=== PATIENT | female | born 1955 | race African-American/Black ===

== ENCOUNTER 2021-02-12 14:12 | Emergency (ER) | payer MEDICARE, MEDICAID ==
[~2021-02-12] VITALS: Ht 167.6 cm; Wt 91.0 kg
[~2021-02-12 14:12] MED LIST: HIV MEDS
[2021-02-12] MEDS ORDERED: ONDANSETRON HCL 4MG/2ML INJ IV STA (16:22)
[2021-02-12] MEDS ORDERED: SODIUM CHLORIDE 0.9% 1,000 ML IV ONE (16:30)
[2021-02-12] MEDS ORDERED: HALOPERIDOL LACTATE 5MG/ML VIAL IM ONE ×2 (17:00)
[2021-02-12 17:06] LABS: BASOPHILS % 0.4 % (0.0-2.0); EOSINOPHILS % 0.1 % (0.0-5.0); HEMATOCRIT. 34.1 % (36.0-48.0); HEMOGLOBIN. 10.9 g/dL (12.0-16.0); MEAN CORPUSCULAR HEMOGLOBIN 24.3 pg (28.0-32.0); MEAN CORPUSCULAR VOLUME 76.2 fL (81.0-99.0); MEAN PLATELET VOLUME 8.9 fl (7.4-10.4); MONOCYTES % 2.7 % (2.0-8.0); NEUTROPHILS % 77.8 % (40.0-76.0); PLATELET 250 x1000/uL (130-400); RED BLOOD CELL COUNT 4.48 mill/uL (4.2-5.4); RED CELL DISTRIBUTION WIDTH 16.7 % (11.6-14.6)
[2021-02-12 17:13] LABS: PROTHROMBIN TIME 10.7 sec (9.6-11.0)
[2021-02-12 17:18] LABS: CHLORIDE 107 mEq/L (98-107)
[2021-02-12 17:30] LABS: CLARITY URINE CLEAR (CLEAR); COLOR URINE YELLOW (YELLOW); KETONES URINE 2+ (NEGATIVE); LEUKOCYTE ESTERASE URINE NEGATIVE (NEGATIVE); NITRITE URINE NEGATIVE (NEGATIVE); OCCULT BLOOD URINE NEGATIVE (NEGATIVE); PH URINE 6.5 (4.5-8.0); PROTEIN URINE TRACE (NEGATIVE); SPECIFIC GRAVITY URINE 1.027 (1.005-1.030); UROBILINOGEN URINE 0.2 E.U./dL (0.2-1.0)
[2021-02-12 17:40] LABS: *AMPHETAMINES SCREEN URINE NEGATIVE (NEGATIVE); *BARBITURATES SCREEN URINE NEGATIVE (NEGATIVE); *BENZODIAZEPINES SCREEN URINE NEGATIVE (NEGATIVE); *COCAINE SCREEN URINE NEGATIVE (NEGATIVE); CANNABINOID URINE SCREEN PRESUMTIVE POSITIVE (NEGATIVE); METHADONE URINE SCREEN NEGATIVE (NEGATIVE); OPIATES URINE SCREEN NEGATIVE (NEGATIVE); PHENCYCLIDINE URINE SCREEN NEGATIVE (NEGATIVE)
[2021-02-12] MEDS ORDERED: IOHEXOL-300 100 ML BOTTLE ONE (18:54)
[2021-02-12 19:38] VITALS: BP 139/47
[2021-02-12] MEDS ORDERED: ONDA4TAB5 MT (19:44)
== END 2021-02-12 20:32 | disposition home or self-care (01) ==
LOC: ER 14:12
DX: A08.4 Viral intestinal infection, unspecified (principal); F17.200 Nicotine dependence, unspecified, uncomplicated; I10 Essential (primary) hypertension; E11.9 Type 2 diabetes mellitus without complications
CPT/HCPCS: 36415; 71045; 74177; 80053; 80305; 81003; 83690; 84484; 85025; 85610; 93005; 96361; 96372; 96374; 99285; J1630; J2405; J7030; Q9967

== ENCOUNTER 2021-02-14 18:50 | Inpatient (IN) | payer MEDICARE, MEDICAID ==
[~2021-02-14] VITALS: Ht 172.7 cm; Wt 61.2 kg
[~2021-02-14 18:50] MED LIST changes: +ONDA4TAB5 MT
[2021-02-14] MEDS ORDERED: MAGNESIUM/ALUMINUM HYDROXIDE/SIMETHICONE 30ML UDC PO STA (21:02)
[2021-02-14] MEDS ORDERED: HYDROCODONE/ACETAMINOPHEN 5/325MG TABLET PO STA (21:02)
[2021-02-14] MEDS ORDERED: VISCOUS LIDOCAINE 2% 15 ML UDC PO STA (21:02)
[2021-02-14 22:46] LABS: BASOPHILS % 0.4 % (0.0-2.0); EOSINOPHILS % 0.2 % (0.0-5.0); HEMATOCRIT. 38.6 % (36.0-48.0); HEMOGLOBIN. 12.4 g/dL (12.0-16.0); LYMPHOCYTES % 31.2 % (20.0-50.0); MEAN CORPUSCULAR HEMOGLOBIN 24.8 pg (28.0-32.0); MEAN CORPUSCULAR VOLUME 77.6 fL (81.0-99.0); MEAN PLATELET VOLUME 8.8 fl (7.4-10.4); MONOCYTES % 5.7 % (2.0-8.0); NEUTROPHILS % 62.5 % (40.0-76.0); PLATELET 201 x1000/uL (130-400); RED BLOOD CELL COUNT 4.98 mill/uL (4.2-5.4); RED CELL DISTRIBUTION WIDTH 17.1 % (11.6-14.6)
[2021-02-14 22:51] LABS: CHLORIDE 103 mEq/L (98-107)
[2021-02-14 23:02] LABS: CLARITY URINE CLEAR (CLEAR); COLOR URINE YELLOW (YELLOW); KETONES URINE 1+ (NEGATIVE); LEUKOCYTE ESTERASE URINE NEGATIVE (NEGATIVE); NITRITE URINE NEGATIVE (NEGATIVE); OCCULT BLOOD URINE NEGATIVE (NEGATIVE); PROTEIN URINE 1+ (NEGATIVE); SPECIFIC GRAVITY URINE 1.022 (1.005-1.030); UROBILINOGEN URINE 0.2 E.U./dL (0.2-1.0)
[2021-02-14] MEDS: KETOROLAC 60MG/2ML VIAL IM SCH (23:18)
[2021-02-15] MEDS ORDERED: KETOROLAC 30MG/ML VIAL IV PRN (04:30)
[2021-02-15] MEDS: KETOROLAC 60MG/2ML VIAL IM SCH (04:35)
[2021-02-15 08:13] VITALS: BP 134/70
[2021-02-15 08:15] VITALS: BP 134/78
[2021-02-15] MEDS ORDERED: LORAZEPAM 0.5MG TABLET PO PRN (10:45)
[2021-02-15] MEDS ORDERED: HYDROCODONE/ACETAMINOPHEN 5/325MG TABLET PO PRN (10:45)
[2021-02-15] MEDS ORDERED: ONDANSETRON HCL 4MG/2ML INJ IV PRN (10:45)
[2021-02-15] MEDS ORDERED: CLONIDINE 0.1MG TABLET PO PRN (10:45)
[2021-02-15] MEDS ORDERED: DOCUSATE SODIUM 100MG CAPSULE PO PRN (10:45)
[2021-02-15] MEDS ORDERED: HYDROCODONE/ACETAMINOPHEN 10/325MG TABLET PO PRN (10:45)
[2021-02-15] MEDS ORDERED: ACETAMINOPHEN 325MG TABLET PO PRN ×2 (10:45)
[2021-02-15] MEDS ORDERED: IPRATROPIUM/ALBUTEROL 0.5-3(2.5)MG/3ML NEB HHN PRN (10:45)
[2021-02-15] MEDS: MORPHINE SULFATE 2 MG/ML CPJ (NOT FOR IM USE) IV PRN ×3 (11:10→23:09)
[2021-02-15 12:00] VITALS: BP 155/63
[2021-02-15 15:11] LABS: HEPATITIS B SURFACE ANTIGEN NEGATIVE
[2021-02-15] MEDS ORDERED: QUET100T34 PO (15:28)
[2021-02-15] MEDS ORDERED: LISI10TA26 PO (15:28)
[2021-02-15] MEDS ORDERED: METO5TAB2 PO (15:28)
[2021-02-15] MEDS ORDERED: BICT1TAB PO (15:28)
[2021-02-15] MEDS ORDERED: ATOR20TA PO (15:28)
[2021-02-15 16:00] VITALS: BP 142/70
[2021-02-15 19:45] LABS: *BARBITURATES SCREEN URINE NEGATIVE (NEGATIVE); *BENZODIAZEPINES SCREEN URINE NEGATIVE (NEGATIVE); *COCAINE SCREEN URINE NEGATIVE (NEGATIVE); CANNABINOID URINE SCREEN PRESUMTIVE POSITIVE (NEGATIVE); METHADONE URINE SCREEN NEGATIVE (NEGATIVE)
[2021-02-15 19:46] LABS: *AMPHETAMINES SCREEN URINE NEGATIVE (NEGATIVE)
[2021-02-15 19:53] LABS: PHENCYCLIDINE URINE SCREEN NEGATIVE (NEGATIVE)
[2021-02-15 19:55] LABS: OPIATES URINE SCREEN PRESUMTIVE POSITIVE (NEGATIVE)
[2021-02-15 20:00] VITALS: BP 135/69
[2021-02-15] MEDS ORDERED: DEXTROSE 50% WATER 50ML SYRINGE IV PRN (20:00)
[2021-02-15] MEDS: BLOOD SUGAR DIAGNOSTIC STRIP TEST SCH (20:53)
[2021-02-15] MEDS: INSULIN LISPRO 100 UNITS/ML SUBCUT SCH (20:56)
[2021-02-16] VITALS (7 sets, daily range): BP systolic 95–151; BP diastolic 54–99
[2021-02-16 06:48] LABS: CHLORIDE 105 mEq/L (98-107)
[2021-02-16 06:54] LABS: BASOPHILS % 0.2 % (0.0-2.0); EOSINOPHILS % 2.1 % (0.0-5.0); HEMATOCRIT. 34.9 % (36.0-48.0); HEMOGLOBIN. 11.4 g/dL (12.0-16.0); LYMPHOCYTES % 46.8 % (20.0-50.0); MEAN CORPUSCULAR HEMOGLOBIN 24.9 pg (28.0-32.0); MEAN CORPUSCULAR VOLUME 76.2 fL (81.0-99.0); MONOCYTES % 6.5 % (2.0-8.0); NEUTROPHILS % 44.4 % (40.0-76.0); PLATELET 207 x1000/uL (130-400); RED BLOOD CELL COUNT 4.58 mill/uL (4.2-5.4); RED CELL DISTRIBUTION WIDTH 16.7 % (11.6-14.6)
[2021-02-16] MEDS: BLOOD SUGAR DIAGNOSTIC STRIP TEST SCH ×2 (07:00→20:38)
[2021-02-16] MEDS: INSULIN LISPRO 100 UNITS/ML SUBCUT SCH ×3 (07:50→20:38)
[2021-02-16] MEDS ORDERED: POTASSIUM CHLORIDE 20MEQ TABLET SR PO NR (10:15)
[2021-02-16] MEDS ORDERED: NALOXONE HCL 0.4MG/ML VIAL IV PRN (10:30)
[2021-02-16] MEDS: MORPHINE SULFATE 2 MG/ML CPJ (NOT FOR IM USE) IV PRN ×3 (12:07→20:38)
[2021-02-16] MEDS: ARIPIPRAZOLE 5MG TABLET PO SCH (16:54)
[2021-02-16] MEDS: SERTRALINE HCL 25MG TABLET PO SCH (16:55)
[2021-02-16] MEDS ORDERED: QUETIAPINE FUMARATE 50MG TABLET PO SCH (21:00)
[2021-02-17] VITALS: BP 115/60
[2021-02-17] MEDS: MORPHINE SULFATE 2 MG/ML CPJ (NOT FOR IM USE) IV PRN ×3 (03:23→20:16)
[2021-02-17 04:00] VITALS: BP 106/67
[2021-02-17] MEDS: BLOOD SUGAR DIAGNOSTIC STRIP TEST SCH ×4 (06:23→20:07)
[2021-02-17] MEDS: INSULIN LISPRO 100 UNITS/ML SUBCUT SCH ×4 (07:50→20:14)
[2021-02-17 07:58] VITALS: BP 142/81
[2021-02-17] MEDS: ARIPIPRAZOLE 5MG TABLET PO SCH (09:00)
[2021-02-17] MEDS: SERTRALINE HCL 25MG TABLET PO SCH (09:00)
[2021-02-17 09:17] LABS: BASOPHILS % 0.6 % (0.0-2.0); EOSINOPHILS % 2.5 % (0.0-5.0); HEMATOCRIT. 32.5 % (36.0-48.0); HEMOGLOBIN. 10.6 g/dL (12.0-16.0); LYMPHOCYTES % 52.9 % (20.0-50.0); MEAN CORPUSCULAR HEMOGLOBIN 24.9 pg (28.0-32.0); MEAN PLATELET VOLUME 8.7 fl (7.4-10.4); MONOCYTES % 7.5 % (2.0-8.0); NEUTROPHILS % 36.5 % (40.0-76.0); PLATELET 213 x1000/uL (130-400); RED BLOOD CELL COUNT 4.28 mill/uL (4.2-5.4); RED CELL DISTRIBUTION WIDTH 16.4 % (11.6-14.6)
[2021-02-17 09:23] LABS: CHLORIDE 105 mEq/L (98-107)
[2021-02-17] MEDS: QUETIAPINE FUMARATE 50MG TABLET PO SCH ×2 (09:30→20:13)
[2021-02-17 11:08] VITALS: BP 120/69
[2021-02-17] MEDS: PANTOPRAZOLE SODIUM 40 MG/VIAL IV SCH (13:15)
[2021-02-17 16:00] VITALS: BP 155/88
[2021-02-17 19:58] VITALS: BP 124/74
[2021-02-17] MEDS: BIKTARVY 50-200-25MG TABLET PO SCH (22:14)
[2021-02-18 03:33] VITALS: BP_SYST 132; BP_SYST 58; BP_DIAS 58
[2021-02-18] MEDS: MORPHINE SULFATE 2 MG/ML CPJ (NOT FOR IM USE) IV PRN (06:40)
[2021-02-18] MEDS: BLOOD SUGAR DIAGNOSTIC STRIP TEST SCH ×4 (06:48→20:41)
[2021-02-18 07:22] LABS: BASOPHILS % 0.4 % (0.0-2.0); EOSINOPHILS % 3.1 % (0.0-5.0); HEMATOCRIT. 31.9 % (36.0-48.0); HEMOGLOBIN. 10.4 g/dL (12.0-16.0); MEAN CORPUSCULAR HEMOGLOBIN 24.8 pg (28.0-32.0); MEAN CORPUSCULAR VOLUME 76.6 fL (81.0-99.0); MONOCYTES % 7.2 % (2.0-8.0); NEUTROPHILS % 33.3 % (40.0-76.0); PLATELET 231 x1000/uL (130-400); RED BLOOD CELL COUNT 4.17 mill/uL (4.2-5.4)
[2021-02-18 07:27] LABS: CHLORIDE 106 mEq/L (98-107)
[2021-02-18 08:12] VITALS: BP 115/67
[2021-02-18] MEDS: PANTOPRAZOLE SODIUM 40 MG/VIAL IV SCH (08:56)
[2021-02-18] MEDS: BIKTARVY 50-200-25MG TABLET PO SCH (08:56)
[2021-02-18] MEDS: QUETIAPINE FUMARATE 50MG TABLET PO SCH ×2 (08:57→20:41)
[2021-02-18] MEDS: ARIPIPRAZOLE 5MG TABLET PO SCH (09:00)
[2021-02-18] MEDS: SERTRALINE HCL 25MG TABLET PO SCH (09:00)
[2021-02-18] MEDS: INSULIN LISPRO 100 UNITS/ML SUBCUT SCH ×4 (09:26→20:48)
[2021-02-18] MEDS: POLYETHYLENE GLYCOL 3350 (17GM) 1 DOSE PACK PO SCH (10:45)
[2021-02-18] MEDS ORDERED: BISACODYL 5MG TABLET PO NR (10:45)
[2021-02-18] MEDS ORDERED: ABIL5 PO (12:10)
[2021-02-18] MEDS ORDERED: SERT25TA74 PO (12:10)
[2021-02-18] MEDS ORDERED: QUET50TA PO (12:10)
[2021-02-18 12:16] VITALS: BP 118/65
[2021-02-18] MEDS: METOCLOPRAMIDE HCL 5MG TABLET PO SCH ×3 (12:20→20:41)
[2021-02-18 20:00] VITALS: BP 102/66
[2021-02-18] MEDS ORDERED: POTASSIUM CHLORIDE 20MEQ TABLET SR PO NR (21:45)
[2021-02-19 04:00] VITALS: BP 112/67
[2021-02-19] MEDS: BLOOD SUGAR DIAGNOSTIC STRIP TEST SCH ×4 (07:20→20:33)
[2021-02-19] MEDS: INSULIN LISPRO 100 UNITS/ML SUBCUT SCH ×4 (09:05→20:36)
[2021-02-19] MEDS: METOCLOPRAMIDE HCL 5MG TABLET PO SCH ×4 (09:07→20:32)
[2021-02-19] MEDS: ARIPIPRAZOLE 5MG TABLET PO SCH (09:07)
[2021-02-19] MEDS: QUETIAPINE FUMARATE 50MG TABLET PO SCH ×2 (09:08→20:33)
[2021-02-19] MEDS: BIKTARVY 50-200-25MG TABLET PO SCH (09:08)
[2021-02-19] MEDS: SERTRALINE HCL 25MG TABLET PO SCH (09:11)
[2021-02-19] MEDS: POLYETHYLENE GLYCOL 3350 (17GM) 1 DOSE PACK PO SCH (09:11)
[2021-02-19] MEDS: PANTOPRAZOLE SODIUM 40 MG/VIAL IV SCH (09:29)
[2021-02-19 13:00] VITALS: BP 129/79
[2021-02-19] MEDS ORDERED: LACTULOSE 20G/30ML UDC PO SCH (13:15)
[2021-02-19] MEDS: MORPHINE SULFATE 2 MG/ML CPJ (NOT FOR IM USE) IV PRN ×2 (13:31→20:33)
[2021-02-19 20:00] VITALS: BP 115/59
[2021-02-20] VITALS: BP 97/48
[2021-02-20 04:00] VITALS: BP_SYST 133; BP_DIAS 74; BP_DIAS 76
[2021-02-20] MEDS: METOCLOPRAMIDE HCL 5MG TABLET PO SCH ×2 (06:45→16:57)
[2021-02-20] MEDS: MORPHINE SULFATE 2 MG/ML CPJ (NOT FOR IM USE) IV PRN (06:49)
[2021-02-20] MEDS: BLOOD SUGAR DIAGNOSTIC STRIP TEST SCH ×3 (06:49→17:01)
[2021-02-20] MEDS: INSULIN LISPRO 100 UNITS/ML SUBCUT SCH ×3 (07:42→17:01)
[2021-02-20 08:00] VITALS: BP_SYST 123; BP_SYST 129; BP_DIAS 70; BP_DIAS 71
[2021-02-20] MEDS ORDERED: SERTRALINE HCL 50MG TABLET PO SCH (09:00)
[2021-02-20] MEDS: BIKTARVY 50-200-25MG TABLET PO SCH (09:57)
[2021-02-20] MEDS: POLYETHYLENE GLYCOL 3350 (17GM) 1 DOSE PACK PO SCH (09:57)
[2021-02-20] MEDS: PANTOPRAZOLE SODIUM 40 MG/VIAL IV SCH (09:57)
[2021-02-20] MEDS: ARIPIPRAZOLE 5MG TABLET PO SCH (09:58)
[2021-02-20] MEDS: QUETIAPINE FUMARATE 50MG TABLET PO SCH (09:58)
[2021-02-20 12:00] VITALS: BP 124/70
[2021-02-20 16:00] VITALS: BP 127/79
[2021-02-20 19:15] VITALS: BP 130/70
== END 2021-02-20 19:10 | disposition home health service (06) | DRG 253 ==
LOC: ER 18:50 → 6WST 23:57 → EDBEDREQ 02-15 00:02 → EDBEDREQTM 02-15 00:02 → ENRESERV 02-15 07:07
PROVIDERS: ADMIT Internal Medicine; ATTEND Internal Medicine
DX: K92.2 Gastrointestinal hemorrhage, unspecified (principal); E11.43 Type 2 diabetes mellitus with diabetic autonomic (poly)neuropathy; F25.0 Schizoaffective disorder, bipolar type; K31.84 Gastroparesis; F12.188 Cannabis abuse with other cannabis-induced disorder; G89.29 Other chronic pain; E78.5 Hyperlipidemia, unspecified; I10 Essential (primary) hypertension; F17.210 Nicotine dependence, cigarettes, uncomplicated; R74.01 Elevation of levels of liver transaminase levels; K21.9 Gastro-esophageal reflux disease without esophagitis; R80.9 Proteinuria, unspecified; F43.10 Post-traumatic stress disorder, unspecified; F99 Mental disorder, not otherwise specified; Z79.84 Long term (current) use of oral hypoglycemic drugs; Z91.51 Personal history of suicidal behavior; R10.9 Unspecified abdominal pain
CPT/HCPCS: 36415; 76705; 80048; 80053; 80061; 80076; 80305; 81003; 82962; 83036; 83735; 84100; 84443; 84484; 85025; 86705; 86709; 86803; 87340; 93005; 93306; 99285; C9113; J1815; J1885; J2270; J2405; J8597

== ENCOUNTER 2021-05-01 08:20 | Emergency (ER) | payer MEDICARE, MEDICAID ==
[~2021-05-01] VITALS: Ht 170.2 cm; Wt 63.0 kg
[~2021-05-01 08:20] MED LIST changes: +ABIL5 PO; +ATOR20TA PO; +BICT1TAB PO; +LISI10TA26 PO; +METO5TAB2 PO; +QUET50TA PO; +SERT25TA74 PO
[2021-05-01] MEDS ORDERED: IBUP-2028 MT (08:59)
[2021-05-01] MEDS ORDERED: AMOX-424 MT (08:59)
[2021-05-01] MEDS ORDERED: TETANUS, DIPHTHERIA, PERTUSSIS VAC/PF 0.5ML (>10YR OLD) IM ONE (09:00)
[2021-05-01] MEDS ORDERED: IBUPROFEN 600MG TABLET PO ONE (09:00)
[2021-05-01] MEDS ORDERED: AMOXICILLIN/POTASSIUM CLAVULANATE 875/125MG TAB PO ONE (09:00)
[2021-05-01] MEDS ORDERED: BACITRACIN ZINC OINT UDPKT TOP ONE (09:00)
[2021-05-01 10:23] VITALS: BP 138/87
== END 2021-05-01 10:26 | disposition home or self-care (01) ==
LOC: ER 08:20
DX: S61.452A Open bite of left hand, initial encounter (principal); I10 Essential (primary) hypertension; E11.9 Type 2 diabetes mellitus without complications; F32.A Depression, unspecified; K21.9 Gastro-esophageal reflux disease without esophagitis; W54.0XXA Bitten by dog, initial encounter; Y93.89 Activity, other specified; Y92.018 Other place in single-family (private) house as the place of occurrence of the external cause
CPT/HCPCS: 90471; 90715; 99283

== ENCOUNTER 2021-05-14 13:12 | Inpatient (IN) | payer MEDICARE, MEDICAID ==
[~2021-05-14] VITALS: Ht 177.8 cm; Wt 67.8 kg
[~2021-05-14 13:12] MED LIST changes: +AMOX-424 MT; +IBUP-2028 MT
[2021-05-14] MEDS ORDERED: MAGNESIUM/ALUMINUM HYDROXIDE/SIMETHICONE 30ML UDC PO STA (14:48)
[2021-05-14] MEDS ORDERED: VISCOUS LIDOCAINE 2% 15 ML UDC PO STA (14:48)
[2021-05-14] MEDS ORDERED: ONDANSETRON HCL 4MG/2ML INJ IV STA (14:48)
[2021-05-14] MEDS ORDERED: FAMOTIDINE 20MG/2ML VIAL IV ONE (15:00)
[2021-05-14] MEDS ORDERED: SODIUM CHLORIDE 0.9% 1,000 ML IV ONE (15:00)
[2021-05-14 16:10] LABS: BASOPHILS % 0.3 % (0.0-2.0); CHLORIDE 108 mEq/L (98-107); HEMATOCRIT. 34.1 % (36.0-48.0); LYMPHOCYTES % 19.1 % (20.0-50.0); MEAN CORPUSCULAR HEMOGLOBIN 24.2 pg (28.0-32.0); MEAN CORPUSCULAR VOLUME 75.5 fL (81.0-99.0); MEAN PLATELET VOLUME 8.7 fl (7.4-10.4); MONOCYTES % 3.4 % (2.0-8.0); NEUTROPHILS % 77.2 % (40.0-76.0); PLATELET 282 x1000/uL (130-400); RED BLOOD CELL COUNT 4.52 mill/uL (4.2-5.4); RED CELL DISTRIBUTION WIDTH 16.8 % (11.6-14.6)
[2021-05-14 18:31] LABS: CLARITY URINE CLEAR (CLEAR); COLOR URINE YELLOW (YELLOW); KETONES URINE 3+ (NEGATIVE); LEUKOCYTE ESTERASE URINE TRACE (NEGATIVE); NITRITE URINE NEGATIVE (NEGATIVE); OCCULT BLOOD URINE NEGATIVE (NEGATIVE); PH URINE 6.5 (4.5-8.0); PROTEIN URINE TRACE (NEGATIVE); SPECIFIC GRAVITY URINE 1.025 (1.005-1.030); UROBILINOGEN URINE 0.2 E.U./dL (0.2-1.0)
[2021-05-14] MEDS ORDERED: KETOROLAC 60MG/2ML VIAL IM ONE (21:00)
[2021-05-14] MEDS ORDERED: CEFTRIAXONE 1 G PREMIX 50 ML IV ONE (22:45)
[2021-05-15] MEDS ORDERED: DOCUSATE SODIUM 100MG CAPSULE PO PRN (00:45)
[2021-05-15] MEDS ORDERED: GUAIFENESIN 200MG/10ML SUGAR FREE UDC PO PRN (00:45)
[2021-05-15] MEDS ORDERED: IPRATROPIUM/ALBUTEROL 0.5-3(2.5)MG/3ML NEB NEB PRN (00:45)
[2021-05-15] MEDS ORDERED: MAGNESIUM/ALUMINUM HYDROXIDE/SIMETHICONE 30ML UDC PO PRN (00:45)
[2021-05-15] MEDS ORDERED: ACETAMINOPHEN 325MG TABLET PO PRN (00:45)
[2021-05-15] MEDS ORDERED: CLONIDINE 0.1MG TABLET PO PRN (00:45)
[2021-05-15] MEDS ORDERED: NALOXONE HCL 0.4MG/ML VIAL IV PRN (01:30)
[2021-05-15] MEDS: MORPHINE SULFATE 2 MG/ML CPJ (NOT FOR IM USE) IV PRN ×5 (01:32→23:29)
[2021-05-15 05:03] LABS: CHLORIDE 111 mEq/L (98-107)
[2021-05-15 05:04] LABS: BASOPHILS % 0.2 % (0.0-2.0); HEMATOCRIT. 33.4 % (36.0-48.0); HEMOGLOBIN. 10.7 g/dL (12.0-16.0); MEAN CORPUSCULAR HEMOGLOBIN 24.6 pg (28.0-32.0); MEAN CORPUSCULAR VOLUME 76.5 fL (81.0-99.0); MEAN PLATELET VOLUME 9.1 fl (7.4-10.4); MONOCYTES % 2.7 % (2.0-8.0); NEUTROPHILS % 80.1 % (40.0-76.0); PLATELET 263 x1000/uL (130-400); RED BLOOD CELL COUNT 4.36 mill/uL (4.2-5.4); RED CELL DISTRIBUTION WIDTH 17.1 % (11.6-14.6)
[2021-05-15 05:12] LABS: LDL CHOLESTEROL 56 mg/dL (5-100)
[2021-05-15 05:15] LABS: HDL CHOLESTEROL 82 mg/dL (40-59)
[2021-05-15] MEDS: SODIUM CHLORIDE 0.9% 1,000 ML IV SCH ×2 (07:30→19:50)
[2021-05-15] MEDS: KETOROLAC 30MG/ML VIAL IV PRN (08:13)
[2021-05-15] MEDS: ONDANSETRON HCL 4MG/2ML INJ IV PRN ×2 (08:13→16:03)
[2021-05-15] MEDS: ENOXAPARIN 40MG/0.4ML SYR SUBCUT SCH (09:00)
[2021-05-15] MEDS: FAMOTIDINE 20MG TABLET PO SCH ×2 (09:00→23:31)
[2021-05-15] MEDS: HYDROCODONE/ACETAMINOPHEN 5/325MG TABLET PO PRN (14:10)
[2021-05-15] MEDS: LEVOTHYROXINE SODIUM 25MCG TABLET PO SCH (20:00)
[2021-05-15] MEDS ORDERED: DEXTROSE 50% WATER 50ML SYRINGE IV PRN ×3 (20:00→20:15)
[2021-05-15] MEDS ORDERED: MORPHINE SULFATE 2 MG/ML CPJ (NOT FOR IM USE) IV PRN (20:15)
[2021-05-15] MEDS: BLOOD SUGAR DIAGNOSTIC STRIP TEST SCH (21:00)
[2021-05-15] MEDS ORDERED: BLOOD SUGAR DIAGNOSTIC STRIP TEST SCH (21:00)
[2021-05-15] MEDS ORDERED: INSULIN LISPRO 100 UNITS/ML SUBCUT SCH (21:00)
[2021-05-15] MEDS: METOCLOPRAMIDE HCL 10MG/2ML VIAL IV SCH (23:30)
[2021-05-16] MEDS: INSULIN LISPRO (MEDIUM DOSE) 100 UNITS/ML SUBCUT SCH ×5 (00:23→21:35)
[2021-05-16] MEDS: KETOROLAC 30MG/ML VIAL IV PRN (01:42)
[2021-05-16] MEDS: HYDROCODONE/ACETAMINOPHEN 5/325MG TABLET PO PRN ×2 (02:14→06:37)
[2021-05-16] MEDS: SODIUM CHLORIDE 0.9% 1,000 ML IV SCH (02:32)
[2021-05-16 04:00] VITALS: BP 151/57
[2021-05-16] MEDS: MORPHINE SULFATE 2 MG/ML CPJ (NOT FOR IM USE) IV PRN ×2 (04:34→15:59)
[2021-05-16] MEDS: METOCLOPRAMIDE HCL 10MG/2ML VIAL IV SCH ×2 (06:40→13:17)
[2021-05-16] MEDS: CEFTRIAXONE 1,000 MG in DEXTROSE 5% WATER 50 ML IV SCH (06:41)
[2021-05-16 07:17] LABS: *AMPHETAMINES SCREEN URINE NEGATIVE (NEGATIVE); *BARBITURATES SCREEN URINE NEGATIVE (NEGATIVE); *BENZODIAZEPINES SCREEN URINE NEGATIVE (NEGATIVE); *COCAINE SCREEN URINE NEGATIVE (NEGATIVE)
[2021-05-16 07:18] LABS: CANNABINOID URINE SCREEN PRESUMTIVE POSITIVE (NEGATIVE); METHADONE URINE SCREEN NEGATIVE (NEGATIVE); OPIATES URINE SCREEN PRESUMTIVE POSITIVE (NEGATIVE)
[2021-05-16] MEDS: BLOOD SUGAR DIAGNOSTIC STRIP TEST SCH ×4 (07:20→21:36)
[2021-05-16 07:25] LABS: PHENCYCLIDINE URINE SCREEN NEGATIVE (NEGATIVE)
[2021-05-16 08:00] VITALS: BP 154/60
[2021-05-16] MEDS ORDERED: CEFTRIAXONE 1 G PREMIX 50 ML IV SCH (08:00)
[2021-05-16 09:19] LABS: CHLORIDE 105 mEq/L (98-107)
[2021-05-16 09:26] LABS: PHOSPHORUS 1.9 mg/dL (2.5-4.9)
[2021-05-16 09:34] LABS: T4 FREE 1.11 ng/dL (0.76-1.46)
[2021-05-16] MEDS: SERTRALINE HCL 50MG TABLET PO SCH (10:30)
[2021-05-16] MEDS: QUETIAPINE FUMARATE 50MG TABLET PO SCH ×2 (10:30→21:27)
[2021-05-16] MEDS: ONDANSETRON HCL 4MG/2ML INJ IV PRN ×2 (11:14→19:48)
[2021-05-16] MEDS: LEVOTHYROXINE SODIUM 25MCG TABLET PO SCH (11:15)
[2021-05-16] MEDS: FAMOTIDINE 20MG TABLET PO SCH ×2 (11:15→21:27)
[2021-05-16] MEDS: ENOXAPARIN 40MG/0.4ML SYR SUBCUT SCH (11:16)
[2021-05-16 12:00] VITALS: BP 157/73
[2021-05-16 12:13] LABS: BASOPHILS % 0.4 % (0.0-2.0); EOSINOPHILS % 0.1 % (0.0-5.0); HEMATOCRIT. 34.2 % (36.0-48.0); HEMOGLOBIN. 10.7 g/dL (12.0-16.0); LYMPHOCYTES % 27.8 % (20.0-50.0); MEAN CORPUSCULAR HEMOGLOBIN 23.8 pg (28.0-32.0); MEAN CORPUSCULAR VOLUME 76.3 fL (81.0-99.0); MONOCYTES % 3.9 % (2.0-8.0); NEUTROPHILS % 67.8 % (40.0-76.0); PLATELET 258 x1000/uL (130-400); RED BLOOD CELL COUNT 4.49 mill/uL (4.2-5.4); RED CELL DISTRIBUTION WIDTH 17.1 % (11.6-14.6)
[2021-05-16 16:00] VITALS: BP 146/67
[2021-05-16] MEDS: HYDROMORPHONE HCL/PF 2MG/ML CPJ IV PRN (19:22)
[2021-05-16 20:00] VITALS: BP 118/59
[2021-05-16] MEDS: TRAZODONE HCL 50MG TABLET PO SCH (21:26)
[2021-05-16] MEDS: SUCRALFATE 1 G/10 ML UDC PO SCH (21:26)
[2021-05-17] VITALS: BP 140/64
[2021-05-17] MEDS: SODIUM CHLORIDE 0.9% 1,000 ML IV SCH ×2 (03:30→20:10)
[2021-05-17 04:00] VITALS: BP 103/48
[2021-05-17] MEDS: METOCLOPRAMIDE HCL 10MG/2ML VIAL IV SCH ×3 (05:51→17:09)
[2021-05-17] MEDS: BLOOD SUGAR DIAGNOSTIC STRIP TEST SCH ×4 (07:20→21:00)
[2021-05-17] MEDS: INSULIN LISPRO (MEDIUM DOSE) 100 UNITS/ML SUBCUT SCH ×4 (07:50→21:00)
[2021-05-17 08:00] VITALS: BP 166/74
[2021-05-17] MEDS: HYDROMORPHONE HCL/PF 2MG/ML CPJ IV PRN ×2 (08:28→17:08)
[2021-05-17] MEDS: LEVOTHYROXINE SODIUM 25MCG TABLET PO SCH (08:30)
[2021-05-17] MEDS: SUCRALFATE 1 G/10 ML UDC PO SCH ×4 (08:30→20:38)
[2021-05-17] MEDS: QUETIAPINE FUMARATE 50MG TABLET PO SCH ×2 (08:30→20:39)
[2021-05-17] MEDS: CEFTRIAXONE 1,000 MG in DEXTROSE 5% WATER 50 ML IV SCH (08:30)
[2021-05-17] MEDS: FAMOTIDINE 20MG TABLET PO SCH ×2 (08:30→20:39)
[2021-05-17] MEDS: ENOXAPARIN 40MG/0.4ML SYR SUBCUT SCH (08:30)
[2021-05-17] MEDS: SERTRALINE HCL 50MG TABLET PO SCH (09:00)
[2021-05-17 09:47] LABS: BASOPHILS % 0.3 % (0.0-2.0); EOSINOPHILS % 0.7 % (0.0-5.0); HEMATOCRIT. 30.6 % (36.0-48.0); HEMOGLOBIN. 9.9 g/dL (12.0-16.0); LYMPHOCYTES % 22.5 % (20.0-50.0); MEAN CORPUSCULAR HEMOGLOBIN 24.5 pg (28.0-32.0); MEAN CORPUSCULAR VOLUME 75.4 fL (81.0-99.0); MONOCYTES % 5.9 % (2.0-8.0); NEUTROPHILS % 70.6 % (40.0-76.0); PLATELET 238 x1000/uL (130-400); RED BLOOD CELL COUNT 4.06 mill/uL (4.2-5.4); RED CELL DISTRIBUTION WIDTH 17.1 % (11.6-14.6)
[2021-05-17 10:04] LABS: CHLORIDE 107 mEq/L (98-107)
[2021-05-17 12:00] VITALS: BP 155/69
[2021-05-17] MEDS: HYDROCODONE/ACETAMINOPHEN 5/325MG TABLET PO PRN (12:31)
[2021-05-17] MEDS ORDERED: POLYETHYLENE GLYCOL 3350 (17GM) 1 DOSE PACK PO PRN (14:00)
[2021-05-17 16:00] VITALS: BP 149/73
[2021-05-17] MEDS: DOCUSATE SODIUM 100MG CAPSULE PO SCH (17:10)
[2021-05-17] MEDS ORDERED: IOHEXOL-300 100 ML BOTTLE ONE (18:05)
[2021-05-17] MEDS ORDERED: KCL 20MEQ/100ML PREMIX 100 ML IV ONE (18:30)
[2021-05-17 20:00] VITALS: BP 158/52
[2021-05-17] MEDS: TRAZODONE HCL 50MG TABLET PO SCH (20:38)
[2021-05-17] MEDS: SENNOSIDES 8.6MG TABLET PO SCH (20:40)
[2021-05-18] VITALS: BP 97/84
[2021-05-18] MEDS: METOCLOPRAMIDE HCL 10MG/2ML VIAL IV SCH ×4 (00:46→17:32)
[2021-05-18 05:16] LABS: BASOPHILS % 0.5 % (0.0-2.0); EOSINOPHILS % 5.3 % (0.0-5.0); HEMOGLOBIN. 10.2 g/dL (12.0-16.0); LYMPHOCYTES % 37.2 % (20.0-50.0); MEAN CORPUSCULAR HEMOGLOBIN 24.6 pg (28.0-32.0); MEAN CORPUSCULAR VOLUME 74.5 fL (81.0-99.0); MEAN PLATELET VOLUME 9.2 fl (7.4-10.4); MONOCYTES % 6.2 % (2.0-8.0); NEUTROPHILS % 50.8 % (40.0-76.0); PLATELET 210 x1000/uL (130-400); RED BLOOD CELL COUNT 4.15 mill/uL (4.2-5.4); RED CELL DISTRIBUTION WIDTH 16.9 % (11.6-14.6)
[2021-05-18 05:31] LABS: CHLORIDE 108 mEq/L (98-107)
[2021-05-18] MEDS: SUCRALFATE 1 G/10 ML UDC PO SCH ×4 (05:45→20:00)
[2021-05-18] MEDS: LEVOTHYROXINE SODIUM 25MCG TABLET PO SCH (05:45)
[2021-05-18] MEDS: BLOOD SUGAR DIAGNOSTIC STRIP TEST SCH ×4 (05:51→20:08)
[2021-05-18] MEDS: INSULIN LISPRO (MEDIUM DOSE) 100 UNITS/ML SUBCUT SCH ×4 (05:51→20:15)
[2021-05-18 08:00] VITALS: BP 99/51
[2021-05-18] MEDS: CEFTRIAXONE 1,000 MG in DEXTROSE 5% WATER 50 ML IV SCH (08:00)
[2021-05-18] MEDS: SERTRALINE HCL 50MG TABLET PO SCH (09:00)
[2021-05-18] MEDS: HYDROMORPHONE HCL/PF 2MG/ML CPJ IV PRN ×2 (09:08→17:32)
[2021-05-18] MEDS: QUETIAPINE FUMARATE 50MG TABLET PO SCH ×2 (09:10→20:01)
[2021-05-18] MEDS: FAMOTIDINE 20MG TABLET PO SCH ×2 (09:10→20:01)
[2021-05-18] MEDS: ENOXAPARIN 40MG/0.4ML SYR SUBCUT SCH (09:10)
[2021-05-18] MEDS: DOCUSATE SODIUM 100MG CAPSULE PO SCH ×2 (09:10→17:32)
[2021-05-18] MEDS ORDERED: KCL 20MEQ/100ML PREMIX 100 ML IV NR (09:30)
[2021-05-18] MEDS: HYDROCODONE/ACETAMINOPHEN 5/325MG TABLET PO PRN (11:49)
[2021-05-18 12:00] VITALS: BP 144/71
[2021-05-18] MEDS: SODIUM CHLORIDE 0.9% 1,000 ML IV SCH (13:14)
[2021-05-18 16:00] VITALS: BP 154/73
[2021-05-18] MEDS ORDERED: LACTULOSE 20G/30ML UDC PO NR (17:30)
[2021-05-18] MEDS ORDERED: POLYETHYLENE GLYCOL 3350 (17GM) 1 DOSE PACK PO ONE (17:30)
[2021-05-18] MEDS ORDERED: LEVO25TA7 PO (17:53)
[2021-05-18] MEDS ORDERED: SUCR1TAB30 MT (17:53)
[2021-05-18] MEDS ORDERED: FAMO20TA8 PO (17:53)
[2021-05-18 20:00] VITALS: BP 149/64
[2021-05-18] MEDS: TRAZODONE HCL 50MG TABLET PO SCH (20:01)
[2021-05-18] MEDS: SENNOSIDES 8.6MG TABLET PO SCH (20:01)
[2021-05-19] VITALS: BP 122/65
[2021-05-19] MEDS: METOCLOPRAMIDE HCL 10MG/2ML VIAL IV SCH ×3 (00:11→12:18)
[2021-05-19] MEDS: HYDROCODONE/ACETAMINOPHEN 5/325MG TABLET PO PRN (00:33)
[2021-05-19 04:00] VITALS: BP 127/98
[2021-05-19] MEDS: SODIUM CHLORIDE 0.9% 1,000 ML IV SCH (05:30)
[2021-05-19] MEDS: LEVOTHYROXINE SODIUM 25MCG TABLET PO SCH (06:01)
[2021-05-19] MEDS: SUCRALFATE 1 G/10 ML UDC PO SCH ×2 (06:01→12:18)
[2021-05-19] MEDS: BLOOD SUGAR DIAGNOSTIC STRIP TEST SCH ×2 (06:35→12:18)
[2021-05-19] MEDS: INSULIN LISPRO (MEDIUM DOSE) 100 UNITS/ML SUBCUT SCH ×2 (06:36→12:25)
[2021-05-19] MEDS ORDERED: HYDROCODONE/ACETAMINOPHEN 5/325MG TABLET PO PRN (07:15)
[2021-05-19 08:00] VITALS: BP 133/62
[2021-05-19] MEDS: SERTRALINE HCL 50MG TABLET PO SCH (09:00)
[2021-05-19] MEDS: CEFTRIAXONE 1,000 MG in DEXTROSE 5% WATER 50 ML IV SCH (09:13)
[2021-05-19] MEDS: ENOXAPARIN 40MG/0.4ML SYR SUBCUT SCH (09:15)
[2021-05-19] MEDS: QUETIAPINE FUMARATE 50MG TABLET PO SCH (09:15)
[2021-05-19] MEDS: DOCUSATE SODIUM 100MG CAPSULE PO SCH (09:15)
[2021-05-19] MEDS: FAMOTIDINE 20MG TABLET PO SCH (09:15)
[2021-05-19 10:35] LABS: BASOPHILS % 0.6 % (0.0-2.0); EOSINOPHILS % 7.6 % (0.0-5.0); HEMATOCRIT. 33.6 % (36.0-48.0); HEMOGLOBIN. 10.7 g/dL (12.0-16.0); LYMPHOCYTES % 36.3 % (20.0-50.0); MEAN CORPUSCULAR HEMOGLOBIN 24.4 pg (28.0-32.0); MEAN CORPUSCULAR VOLUME 76.7 fL (81.0-99.0); MONOCYTES % 6.4 % (2.0-8.0); NEUTROPHILS % 49.1 % (40.0-76.0); PLATELET 230 x1000/uL (130-400); RED BLOOD CELL COUNT 4.38 mill/uL (4.2-5.4); RED CELL DISTRIBUTION WIDTH 17.1 % (11.6-14.6)
[2021-05-19 10:37] LABS: CHLORIDE 109 mEq/L (98-107)
[2021-05-19 12:00] VITALS: BP 142/72
[2021-05-19 13:23] VITALS: BP 142/72
== END 2021-05-19 17:30 | disposition home or self-care (01) | DRG 48 ==
LOC: ER 13:12 → MICUSO 22:35 → 6EST 05-15 23:12
PROVIDERS: ADMIT Internal Medicine; ATTEND Internal Medicine
DX: E11.43 Type 2 diabetes mellitus with diabetic autonomic (poly)neuropathy (principal); M48.56XA Collapsed vertebra, not elsewhere classified, lumbar region, initial encounter for fracture; D18.09 Hemangioma of other sites; E78.5 Hyperlipidemia, unspecified; K52.9 Noninfective gastroenteritis and colitis, unspecified; N39.0 Urinary tract infection, site not specified; F31.30 Bipolar disorder, current episode depressed, mild or moderate severity, unspecified; K31.84 Gastroparesis; I10 Essential (primary) hypertension; F41.9 Anxiety disorder, unspecified; G47.00 Insomnia, unspecified; K44.9 Diaphragmatic hernia without obstruction or gangrene; K40.20 Bilateral inguinal hernia, without obstruction or gangrene, not specified as recurrent; K57.30 Diverticulosis of large intestine without perforation or abscess without bleeding; K21.9 Gastro-esophageal reflux disease without esophagitis; M10.9 Gout, unspecified; Z20.822 Contact with and (suspected) exposure to COVID-19; R11.10 Vomiting, unspecified
CPT/HCPCS: 36415; 71045; 74176; 74177; 80048; 80053; 80061; 80076; 80305; 81003; 82550; 82553; 82962; 83036; 83735; 84100; 84145; 84439; 84443; 84481; 84484; 85025; 87426; 93005; 93970; 99285; C1893; J0696; J1170; J1650; J1815; J1885; J2270; J2405; J2765; J3480; J3490; J7030; J7060; Q9967

== ENCOUNTER 2021-06-08 11:02 | Emergency (ER) | payer MEDICARE, MEDICAID ==
[~2021-06-08] VITALS: Ht 172.7 cm; Wt 61.0 kg
[~2021-06-08 11:02] MED LIST changes: +FAMO20TA8 PO; +LEVO25TA7 PO; +SUCR1TAB30 MT
[2021-06-08] MEDS ORDERED: ONDANSETRON HCL 4MG/2ML INJ IV ONE (12:00)
[2021-06-08] MEDS ORDERED: FAMOTIDINE 20MG/2ML VIAL IV ONE (12:00)
[2021-06-08] MEDS ORDERED: ACETAMINOPHEN 325MG TABLET PO ONE (12:00)
[2021-06-08 12:01] LABS: BASOPHILS % 0.8 % (0.0-2.0); EOSINOPHILS % 2.5 % (0.0-5.0); HEMATOCRIT. 33.1 % (36.0-48.0); HEMOGLOBIN. 10.8 g/dL (12.0-16.0); LYMPHOCYTES % 47.4 % (20.0-50.0); MEAN CORPUSCULAR HEMOGLOBIN 24.5 pg (28.0-32.0); MEAN CORPUSCULAR VOLUME 75.3 fL (81.0-99.0); MEAN PLATELET VOLUME 8.5 fl (7.4-10.4); MONOCYTES % 6.4 % (2.0-8.0); NEUTROPHILS % 42.9 % (40.0-76.0); PLATELET 304 x1000/uL (130-400); RED BLOOD CELL COUNT 4.39 mill/uL (4.2-5.4); RED CELL DISTRIBUTION WIDTH 17.2 % (11.6-14.6)
[2021-06-08 12:03] LABS: CHLORIDE 111 mEq/L (98-107)
[2021-06-08 12:43] LABS: CLARITY URINE CLOUDY (CLEAR); COLOR URINE YELLOW (YELLOW); KETONES URINE NEGATIVE (NEGATIVE); LEUKOCYTE ESTERASE URINE NEGATIVE (NEGATIVE); NITRITE URINE NEGATIVE (NEGATIVE); OCCULT BLOOD URINE NEGATIVE (NEGATIVE); PH URINE 7.5 (4.5-8.0); PROTEIN URINE TRACE (NEGATIVE)
[2021-06-08 14:46] VITALS: BP 142/62
== END 2021-06-08 14:47 | disposition home or self-care (01) ==
LOC: ER 11:02
DX: R10.32 Left lower quadrant pain (principal); I10 Essential (primary) hypertension; E78.00 Pure hypercholesterolemia, unspecified; E11.9 Type 2 diabetes mellitus without complications; Z79.899 Other long term (current) drug therapy
CPT/HCPCS: 36415; 71045; 80053; 81003; 83690; 83880; 84484; 85025; 93005; 96374; 96375; 99285; J2405; J3490

== ENCOUNTER 2021-07-07 09:38 | Emergency (ER) | payer MEDICARE, MEDICAID ==
[~2021-07-07] VITALS: Ht 175.3 cm; Wt 57.0 kg
[2021-07-07 10:00] VITALS: BP 135/90
[2021-07-07] MEDS ORDERED: CLIN300C12 PO (10:24)
[2021-07-07] MEDS ORDERED: AMOX-424 MT (10:24)
[2021-07-08] MEDS ORDERED: TOPUD PO (09:19)
[2021-07-08] MEDS ORDERED: ONDA4TAB5 PO (09:19)
== END 2021-07-07 11:26 | disposition home or self-care (01) ==
LOC: ER 09:38
DX: H05.011 Cellulitis of right orbit (principal); E11.9 Type 2 diabetes mellitus without complications; I10 Essential (primary) hypertension; E78.00 Pure hypercholesterolemia, unspecified; F12.10 Cannabis abuse, uncomplicated
CPT/HCPCS: 99283

== ENCOUNTER 2021-07-08 05:43 | Emergency (ER) | payer MEDICARE, MEDICAID ==
[~2021-07-08] VITALS: Ht 177.8 cm; Wt 66.0 kg
[~2021-07-08 05:43] MED LIST changes: +CLIN300C12 PO
[2021-07-08] MEDS ORDERED: FAMOTIDINE 20MG/2ML VIAL IV STA (06:15)
[2021-07-08] MEDS ORDERED: ONDANSETRON HCL 4MG/2ML INJ IV STA (06:15)
[2021-07-08 06:31] VITALS: BP 136/88
[2021-07-08 07:41] LABS: BASOPHILS % 0.5 % (0.0-2.0); EOSINOPHILS % 1.5 % (0.0-5.0); HEMATOCRIT. 38.9 % (36.0-48.0); HEMOGLOBIN. 12.9 g/dL (12.0-16.0); LYMPHOCYTES % 28.9 % (20.0-50.0); MEAN CORPUSCULAR HEMOGLOBIN 24.5 pg (28.0-32.0); MEAN CORPUSCULAR VOLUME 73.8 fL (81.0-99.0); MEAN PLATELET VOLUME 9.1 fl (7.4-10.4); MONOCYTES % 10.7 % (2.0-8.0); NEUTROPHILS % 58.4 % (40.0-76.0); PLATELET 281 x1000/uL (130-400); RED BLOOD CELL COUNT 5.27 mill/uL (4.2-5.4); RED CELL DISTRIBUTION WIDTH 18.1 % (11.6-14.6)
[2021-07-08 07:42] LABS: CHLORIDE 108 mEq/L (98-107)
[2021-07-08] MEDS ORDERED: DICYCLOMINE 10 MG/5 ML ORAL SYR PO STA (07:46)
[2021-07-08] MEDS ORDERED: MAGNESIUM/ALUMINUM HYDROXIDE/SIMETHICONE 30ML UDC PO STA (07:46)
[2021-07-08] MEDS ORDERED: VISCOUS LIDOCAINE 2% 15 ML UDC PO STA (07:46)
[2021-07-08 08:14] LABS: CLARITY URINE CLOUDY (CLEAR); COLOR URINE YELLOW (YELLOW); KETONES URINE TRACE (NEGATIVE); LEUKOCYTE ESTERASE URINE NEGATIVE (NEGATIVE); NITRITE URINE NEGATIVE (NEGATIVE); OCCULT BLOOD URINE NEGATIVE (NEGATIVE); PH URINE 5.5 (4.5-8.0); PROTEIN URINE 1+ (NEGATIVE); SPECIFIC GRAVITY URINE 1.023 (1.005-1.030); UROBILINOGEN URINE 0.2 E.U./dL (0.2-1.0)
[2021-07-08] MEDS ORDERED: TOPUD PO (09:19)
[2021-07-08] MEDS ORDERED: ONDA4TAB5 PO (09:19)
[2021-07-08] MEDS ORDERED: ACETAMINOPHEN WITH CODEINE 300/30MG TABLET PO ONE (09:30)
== END 2021-07-08 09:34 | disposition home or self-care (01) ==
LOC: ER 05:43
DX: R10.2 Pelvic and perineal pain (principal); K21.9 Gastro-esophageal reflux disease without esophagitis; E11.9 Type 2 diabetes mellitus without complications; E78.00 Pure hypercholesterolemia, unspecified; M10.9 Gout, unspecified; F12.10 Cannabis abuse, uncomplicated
CPT/HCPCS: 36415; 74176; 80053; 81003; 83690; 85025; 96374; 96375; 99284; J2405; J3490

== ENCOUNTER 2021-07-26 19:36 | Emergency (ER) | payer MEDICARE, MEDICAID ==
[~2021-07-26] VITALS: Ht 175.3 cm; Wt 59.0 kg
[~2021-07-26 19:36] MED LIST changes: +ONDA4TAB5 PO; +TOPUD PO
[2021-07-26] MEDS ORDERED: ONDANSETRON HCL 4MG/2ML INJ IV STA (21:08)
[2021-07-26] MEDS ORDERED: FAMOTIDINE 20MG/2ML VIAL IV STA (21:08)
[2021-07-26] MEDS ORDERED: LORAZEPAM 2MG/ML CPJ IV ONE (21:15)
[2021-07-26] MEDS ORDERED: SODIUM CHLORIDE 0.9% 1,000 ML IV ONE (21:15)
[2021-07-26 21:47] LABS: CLARITY URINE CLEAR (CLEAR); COLOR URINE YELLOW (YELLOW); KETONES URINE NEGATIVE (NEGATIVE); LEUKOCYTE ESTERASE URINE TRACE (NEGATIVE); NITRITE URINE NEGATIVE (NEGATIVE); OCCULT BLOOD URINE NEGATIVE (NEGATIVE); PH URINE 8.5 (4.5-8.0); PROTEIN URINE NEGATIVE (NEGATIVE); SPECIFIC GRAVITY URINE 1.011 (1.005-1.030); UROBILINOGEN URINE 0.2 E.U./dL (0.2-1.0)
[2021-07-26 22:02] LABS: *AMPHETAMINES SCREEN URINE NEGATIVE (NEGATIVE); *BARBITURATES SCREEN URINE NEGATIVE (NEGATIVE)
[2021-07-26 22:03] LABS: *BENZODIAZEPINES SCREEN URINE NEGATIVE (NEGATIVE); *COCAINE SCREEN URINE NEGATIVE (NEGATIVE); CANNABINOID URINE SCREEN PRESUMTIVE POSITIVE (NEGATIVE); METHADONE URINE SCREEN NEGATIVE (NEGATIVE); OPIATES URINE SCREEN PRESUMTIVE POSITIVE (NEGATIVE); PHENCYCLIDINE URINE SCREEN NEGATIVE (NEGATIVE)
[2021-07-26 22:27] LABS: BASOPHILS % 0.9 % (0.0-2.0); EOSINOPHILS % 1.9 % (0.0-5.0); HEMATOCRIT. 39.9 % (36.0-48.0); HEMOGLOBIN. 13.1 g/dL (12.0-16.0); LYMPHOCYTES % 46.2 % (20.0-50.0); MEAN CORPUSCULAR HEMOGLOBIN 24.2 pg (28.0-32.0); MEAN CORPUSCULAR VOLUME 73.4 fL (81.0-99.0); MEAN PLATELET VOLUME 8.4 fl (7.4-10.4); MONOCYTES % 6.2 % (2.0-8.0); NEUTROPHILS % 44.8 % (40.0-76.0); PLATELET 302 x1000/uL (130-400); RED BLOOD CELL COUNT 5.43 mill/uL (4.2-5.4); RED CELL DISTRIBUTION WIDTH 17.2 % (11.6-14.6)
[2021-07-26 22:33] LABS: CHLORIDE 98 mEq/L (98-107)
[2021-07-26 22:38] LABS: ETHANOL BLOOD < 10 mg/dL
[2021-07-26] MEDS ORDERED: ONDA4TAB11 PO (23:24)
[2021-07-26] MEDS ORDERED: IMOD MT (23:24)
[2021-07-26] MEDS ORDERED: OMEP20CA14 MT (23:24)
[2021-07-27 00:50] VITALS: BP 138/72
== END 2021-07-27 01:10 | disposition home or self-care (01) ==
LOC: ER 19:36
DX: R10.13 Epigastric pain (principal); R11.2 Nausea with vomiting, unspecified; R19.7 Diarrhea, unspecified; F12.10 Cannabis abuse, uncomplicated; E11.9 Type 2 diabetes mellitus without complications; K21.9 Gastro-esophageal reflux disease without esophagitis; Z79.899 Other long term (current) drug therapy
CPT/HCPCS: 36415; 80053; 80305; 80320; 81003; 83690; 85025; 96361; 96374; 96375; 99284; J2060; J2405; J3490; J7030; G0480

== ENCOUNTER 2021-07-27 01:06 | Emergency (ER) | payer MEDICARE, MEDICAID ==
[~2021-07-27] VITALS: Ht 172.7 cm; Wt 135.0 kg
[~2021-07-27 01:06] MED LIST changes: +IMOD MT; +OMEP20CA14 MT; +ONDA4TAB11 PO
[2021-07-27] MEDS ORDERED: VISCOUS LIDOCAINE 2% 15 ML UDC PO ONE (02:00)
[2021-07-27] MEDS ORDERED: FAMOTIDINE 20MG TABLET PO ONE (02:00)
[2021-07-27] MEDS ORDERED: MAGNESIUM/ALUMINUM HYDROXIDE/SIMETHICONE 30ML UDC PO ONE (02:00)
[2021-07-27] MEDS ORDERED: ONDANSETRON 4MG ODT PO ONE (02:00)
[2021-07-27] MEDS ORDERED: HYDROCODONE/ACETAMINOPHEN 5/325MG TABLET PO ONE (04:00)
[2021-07-27 04:12] VITALS: BP 128/84
== END 2021-07-27 04:38 | disposition home or self-care (01) ==
LOC: ER 01:06
DX: R10.13 Epigastric pain (principal); Z79.899 Other long term (current) drug therapy; Z87.19 Personal history of other diseases of the digestive system; Z87.898 Personal history of other specified conditions
CPT/HCPCS: 93005; 99284; Q0162